=== PATIENT | female | born 1960 | race Caucasian/White ===

== ENCOUNTER 2020-10-18 13:21 | Outpatient (CLI) | payer OTHER | END 2020-10-18 13:22 | disposition home or self-care (01) | LOC: CSHRAD 13:21 | PROVIDERS: ATTEND Neurological Surgery | DX: M54.16 Radiculopathy, lumbar region (principal); Z98.1 Arthrodesis status; M43.16 Spondylolisthesis, lumbar region | CPT/HCPCS: 72100 ==